=== PATIENT | female | born 1965 | race Caucasian/White ===

== ENCOUNTER 2018-03-21 22:23 | Emergency (ER) | payer MEDICARE ==
[2018-03-21] MEDS ORDERED: Nitroglycerin 2% Ointment 1 INCH/1 GM Packet ONE (22:56)
[2018-03-21] MEDS ORDERED: Ondansetron HCl/PF 4 MG/2 ML Vial ONE (22:56)
[2018-03-21 23:19] LABS: #Basophils 0.1 thou/uL (0.0-0.2); #Eosinphils 0.2 thou/uL (0.0-0.7); #Lymphocytes 1.5 thou/uL (1.20-3.40); #Monocytes 0.5 thou/uL (0.11-0.59); %Basophils 1.3 % (0.0-1.0); %Eosinophils 1.9 % (0.0-10.0); %Lymphocytes 15.7 % (21.0-51.0); %Monocytes 5.2 % (0.0-10.0); %Neutrophils 75.9 % (42.0-75.0); Hemoglobin 12.3 g/dL (12.0-16.0); Mean Corpuscular HGB CONC 32.5 g/dL (32.0-36.0); Mean Corpuscular Hemoglobin 22.8 pg (27.0-31.0); Mean Corpuscular Volume 70.3 fl (81.0-99.0); Mean Platelet Volume 8.5 fL (7.4-10.4); Platelet Count 255 thou/uL (130-400); RBC Distribution Width 15.3 % (11.5-14.5); Red Blood Cell (RBC) Count 5.38 mill/uL (4.20-5.40); White Blood Cell (WBC) Count 9.3 thou/uL (4.8-10.8)
[2018-03-21 23:20] LABS: ALT (SGPT) 12 U/L (8-55); AST (SGOT) 14 U/L (5-34); Albumin 3.5 g/dL (3.5-5.0); Alkaline Phosphatase 94 U/L (40-150); Anion Gap 18 mmol/L (10-20); BUN (Urea Nitrogen) 14 mg/dL (9.8-20.1); Bilirubin, Total 0.7 mg/dL (0.2-1.2); Calc. Creatinine Clearance 0 mL/min (70-130); Calcium 9.6 mg/dL (7.8-10.44); Carbon Dioxide 25 mmol/L (22-29); Chloride 99 mmol/L (98-107); Estimated GFR-MDRD 45; Globulin 3.9 g/dL (2.4-3.5); Glucose 385 mg/dL (70-105); Lipase 22 U/L (8-78); Potassium 3.7 mmol/L (3.5-5.1); Protein, Total 7.4 g/dL (6.0-8.3); Sodium 138 mmol/L (136-145)
[2018-03-21 23:21] LABS: CKMB 1.5 ng/mL (0-6.6)
[2018-03-21 23:24] LABS: Anisocytosis SLIGHT = 6-15 cells (100X) (0-5/hpf); Burr Cells SLIGHT = 2-5 cells (100X) (0-1/hpf); Microcytosis SLIGHT = 6-15 cells (100X) (0-5/hpf); Ovalocytes SLIGHT = 2-5 cells (100X) (0-1/hpf)
[2018-03-21 23:25] LABS: PLT Morphology Comment Appears Adequate
[2018-03-21] MEDS ORDERED: Furosemide 40 MG/4 ML VIAL ONE (23:46)
[2018-03-21 23:55] LABS: Clarity Hazy (Clear); Specific Gravity, Urine 1.025 (1.005-1.030); pH, Urine 5.5 (5.0-9.0)
[2018-03-21 23:56] LABS: Bilirubin Negative (Negative); Blood, Urine Small (Negative); Glucose, Urine (Dipstick) 500 mg/dL (Negative); Leukocyte Negative (Negative); Nitrite Negative (Negative); Protein, Urine (Dipstick) > or equal to 300 mg/dL (Neg-Trace); Urobilinogen 0.2 mg/dL (0.2-1.0)
[2018-03-21 23:57] LABS: Bacteria/HPF 2+ HPF (None Seen)
[2018-03-22] LABS: Other Casts/LPF OTHER CAST LPF (0-3 Hyaline); Yeast-All Forms 3+ HPF (None Seen)
[2018-03-22 00:01] LABS: Hyaline Casts/LPF 0-3 HYALINE CAST LPF (0-3 Hyaline)
--- NOTE | 2018-03-22 07:29 | RAD ---
PORTABLE CHEST: DATE: 03/21/18. FINDINGS: An AP portable film at 2226 shows cardiomegaly and mild vascular congestion. There are no effusions or focal pulmonary consolidations. The trachea is midline. Faint calcification is seen in the aorti c arch. IMPRESSION: Mild congestive change. POS: HOME
== END 2018-03-22 00:15 | disposition short-term general hospital (02) ==
LOC: BURERS 22:23
DX: E10.65 Type 1 diabetes mellitus with hyperglycemia (principal); I11.0 Hypertensive heart disease with heart failure; I50.9 Heart failure, unspecified; E78.5 Hyperlipidemia, unspecified; F32.9 Major depressive disorder, single episode, unspecified; Z79.4 Long term (current) use of insulin; Z79.899 Other long term (current) drug therapy
CPT/HCPCS: 71045; 80053; 81003; 81015; 82553; 83690; 83880; 84484; 85025; 87086; 93005; 94760; 96374; 96375; J1940; J2405

== ENCOUNTER 2019-01-03 11:40 | Emergency (ER) | payer MEDICARE ==
[~2019-01-03 11:40] MED LIST: Iopamidol 370 76% 100 ML VIAL ONE
--- NOTE | 2019-01-03 12:32 | CT ---
HEAD CT WITHOUT CONTRAST: Date: 01/03/19 HISTORY: Left-sided facial weakness since 0600 hours. COMPARISON: None. FINDINGS: No parenchymal hemorrhage. No extra-axial hematoma. No midline shift. Basilar cisterns are patent. Th ere appears to be malacic change involving the right frontal and temporal lobe. Remainder of the cere ofelia demonstrates preservation of cortical wu-white matter differentiation. Ventricles and sulci ar e patent and symmetric. Adequate aeration of the sinuses and mastoid air cells. Calcified atherosclerosis noted. Calvarium is intact. IMPRESSION: 1. No acute intracranial process. 2. Malacic change involving the right cerebrum as described above. Results of study discussed with Dr. Olmedo on 01/03/19 at 1158 hours. CODE CR. POS: [facility]
[2019-01-03 12:37] LABS: INR-International Normal Ratio 1.1; Prothrombin Time 13.9 SEC (12.0-14.7)
[2019-01-03 12:38] LABS: PTT 33.6 SEC (22.9-36.1)
[2019-01-03 12:41] LABS: #Basophils 0.1 thou/uL (0.0-0.2); #Eosinphils 0.3 thou/uL (0.0-0.7); #Monocytes 0.6 thou/uL (0.11-0.59); #Neutrophils 6.2 thou/uL (1.40-6.50); %Basophils 1.6 % (0.0-1.0); %Eosinophils 3.7 % (0.0-10.0); %Lymphocytes 21.8 % (21.0-51.0); %Monocytes 6.1 % (0.0-10.0); %Neutrophils 66.8 % (42.0-75.0); Hemoglobin 13.7 g/dL (12.0-16.0); Mean Corpuscular Hemoglobin 27.6 pg (27.0-31.0); Mean Corpuscular Volume 86.4 fL (78.0-98.0); Mean Platelet Volume 8.6 fL (7.4-10.4); Platelet Count 293 thou/uL (130-400); RBC Distribution Width 14.3 % (11.5-14.5); Red Blood Cell (RBC) Count 4.95 mill/uL (4.20-5.40); White Blood Cell (WBC) Count 9.2 thou/uL (4.8-10.8)
[2019-01-03 12:43] LABS: ALT (SGPT) 10 U/L (8-55); AST (SGOT) 14 U/L (5-34); Albumin 2.8 g/dL (3.5-5.0); Alkaline Phosphatase 90 U/L (40-150); Anion Gap 13 mmol/L (10-20); BUN (Urea Nitrogen) 13 mg/dL (9.8-20.1); Bilirubin, Total 0.5 mg/dL (0.2-1.2); Calc. Creatinine Clearance 0 mL/min (70-130); Calcium 8.7 mg/dL (7.8-10.44); Carbon Dioxide 25 mmol/L (22-29); Chloride 102 mmol/L (98-107); Estimated GFR-MDRD 45; Globulin 3.7 g/dL (2.4-3.5); Glucose 339 mg/dL (70-105); Potassium 3.9 mmol/L (3.5-5.1); Protein, Total 6.5 g/dL (6.0-8.3); Sodium 136 mmol/L (136-145)
[2019-01-03] MEDS ORDERED: Furosemide 100 MG/10 ML VIAL ONE ×2 (13:20→13:49)
--- NOTE | 2019-01-03 15:04 | CT ---
CTA NECK WITH CONTRAST: Date: 01/03/19 Multiple axial tomograms are obtained through the neck following angio protocol with multiplanar armen nstruction and 3D postprocessing. INDICATION: Stroke protocol. FINDINGS: No evidence of stenosis at the origin of the arch vessels. Both common carotid arteries are patent with no stenosis. In the right carotid bifurcation, there is atherosclerotic change involving the bulb and extending in to the proximal right internal carotid artery. This does result in mild stenosis at the origin of the right internal carotid artery; however, the degree of stenosis does not appear to be hemodynamically significant by NASCET criteria and is estimated in the 20% range. Mild atherosclerotic change also seen in the left bulb and proximal left ICA; however, no evidence of significant stenosis. The vertebral arteries are patent and unremarkable. Review of soft tissues reveal enlarged heterogeneous thyroid gland. Left lobe is particularly promine nt. Images through the upper chest show evidence of mediastinal adenopathy. This should be further evalua janey electively. No evidence of cervical adenopathy. IMPRESSION: 1. There is atherosclerotic change at both bulbs and proximal ICAs producing mild stenosis in the pr oximal right ICA. This does not appear to be hemodynamically significant as noted above. 2. Evidence of mediastinal adenopathy in the upper mediastinum. 3. Enlarged, heterogeneous thyroid. Recommend clinical correlation. CTA HEAD: Multiple axial tomograms obtained through the head following angio protocol with multiplanar reconstr uction and 3D postprocessing. INDICATION: Stroke protocol. FINDINGS: The intracranial internal carotid arteries are patent. The anterior cerebral arteries are patent and unremarkable. Middle cerebral arteries are patent and symmetric. Opercular branches appear symmetric. 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 The basilar artery is patent. Posterior cerebrals are patent. No evidence of focal stenosis or proxim al occlusion. IMPRESSION: Unremarkable CT angio of head. POS: [facility]
== END 2019-01-03 14:58 | disposition home or self-care (01) ==
LOC: BURERS 11:40
DX: I11.0 Hypertensive heart disease with heart failure (principal); I50.9 Heart failure, unspecified; E11.9 Type 2 diabetes mellitus without complications; D50.0 Iron deficiency anemia secondary to blood loss (chronic); I25.10 Atherosclerotic heart disease of native coronary artery without angina pectoris; I48.91 Unspecified atrial fibrillation; E66.9 Obesity, unspecified; F41.9 Anxiety disorder, unspecified; F32.9 Major depressive disorder, single episode, unspecified; Z79.4 Long term (current) use of insulin; Z79.899 Other long term (current) drug therapy
CPT/HCPCS: 0042T; 70450; 70496; 80053; 83880; 84484; 85025; 85610; 85730; 93005; 94760; 96374; J1940; Q9967